=== PATIENT | female | born 1995 | race Caucasian/White ===

== ENCOUNTER 2020-04-15 11:50 | Outpatient (CLI) | payer OTHER, SELFPAY ==
[2020-04-15 13:24] LABS: Hepatitis B Surface Antigen Negative (Negative)
[2020-04-15 13:41] LABS: Hepatitis C Virus Antibody Negative (Negative)
[2020-04-18 07:07] LABS: Rapid Plasma Reagin Non-Reactive (NonReactive)
[2020-04-20 17:27] LABS: HSV 1 IgM Screen Negative (Negative); HSV 2 IgM Screen Negative (Negative)
== END 2020-04-15 11:51 | disposition home or self-care (01) ==
LOC: ANHLAB 11:51
PROVIDERS: Visit Provider Student in an Organized Health Care Education/Training Program
DX: Z11.3 Encounter for screening for infections with a predominantly sexual mode of transmission (principal)
CPT/HCPCS: 36415; 86592; 86695; 86696; 86803; 87340

== ENCOUNTER 2021-06-15 13:32 | Outpatient (CLI) | payer OTHER, SELFPAY ==
[2021-06-15 15:15] LABS: HIV 1/2 Ab P24 Ag Result Negative (Negative)
[2021-06-15 15:21] LABS: Hepatitis B Surface Antigen Negative (Negative)
[2021-06-15 15:39] LABS: Hepatitis C Virus Antibody Negative (Negative)
[2021-06-16 10:40] LABS: Rapid Plasma Reagin Non-Reactive (NonReactive)
[2021-06-21 15:27] LABS: HSV 1 IgM Screen Negative (Negative); HSV 2 IgM Screen Negative (Negative)
== END 2021-06-15 13:33 | disposition home or self-care (01) ==
LOC: ANHLAB 13:34
PROVIDERS: Visit Provider Student in an Organized Health Care Education/Training Program
DX: Z11.3 Encounter for screening for infections with a predominantly sexual mode of transmission (principal); Z11.4 Encounter for screening for human immunodeficiency virus [HIV]
CPT/HCPCS: 36415; 86592; 86695; 86696; 86703; 86803; 87340; G0432